=== PATIENT | male | born 1975 | race Two or more races ===

== ENCOUNTER 2018-04-06 11:50 | Emergency (ER) | payer SELFPAY ==
[2018-04-06 12:35] LABS: ADD MAN DIFF? NO
[2018-04-06] MEDS: IV NORMAL SALINE 1000ML BAG 1,000 ML IV ×2 (12:36→13:56)
[2018-04-06] MEDS: MORPHINE SULFATE 10 MG/ML VIAL. IV ×2 (12:38→14:01)
[2018-04-06 12:45] LABS: ANION GAP 14 (6-14); BLOOD UREA NITROGEN 13 mg/dL (8-26); BUN/CREATININE RATIO 10 (6-20); CALCIUM 9.3 mg/dL (8.5-10.1); CARBON DIOXIDE 23 mmol/L (21-32); CHLORIDE 99 mmol/L (98-107); CREATININE 1.3 mg/dL (0.7-1.3); GLUCOSE 135 mg/dL (70-99); POTASSIUM 3.5 mmol/L (3.5-5.1); SODIUM 136 mmol/L (136-145)
[2018-04-06 12:51] LABS: ALBUMIN 4.3 g/dL (3.4-5.0); ALBUMIN/GLOBULIN RATIO 1.3 (1.0-1.7); ALK PHOS 90 U/L (46-116); ALT (SGPT) 35 U/L (16-63); AST (SGOT) 28 U/L (15-37); TOTAL BILIRUBIN 0.5 mg/dL (0.2-1.0); TOTAL PROTEIN 7.6 g/dL (6.4-8.2)
[2018-04-06 13:28] LABS: BASO % 0 % (0-3); EOS % 0 % (0-3); HEMATOCRIT 45.8 % (39.0-53.0); LYMPH # 1.3 x10^3/uL (1.0-4.8); LYMPH % 15 % (24-48); MEAN CORPUSCULAR HEMOGLOBIN 31 pg (25-35); MEAN CORPUSCULAR HGB CONC 35 g/dL (31-37); MEAN CORPUSCULAR VOLUME 90 fL (79-100); MONO # 0.6 x10^3/uL (0.0-1.1); MONO % 6 % (0-9); NEUT # 7.2 x10^3uL (1.8-7.7); NEUT % 79 % (31-73); PLATELET COUNT 253 x10^3/uL (140-400); RED BLOOD COUNT 5.11 x10^6/uL (4.30-5.70); WHITE BLOOD COUNT 9.1 x10^3/uL (4.0-11.0)
[2018-04-06] MEDS: TAMSULOSIN 0.4 MG CAP.ER.24H. PO (13:57)
[2018-04-06] MEDS: KETOROLAC 30 MG/ML INJ. IV (13:59)
[2018-04-06 14:22] LABS: BILIRUBIN,URINE NEGATIVE (NEG); COLOR,URINE YELLOW; GLUCOSE,URINE NEGATIVE (NEG); NITRITE,URINE NEGATIVE (NEG); PH,URINE 7.5; PROTEIN,URINE NEGATIVE (NEG-TRACE)
[2018-04-06 14:24] LABS: BACTERIA,URINE 0 /HPF (0-FEW); CLARITY,URINE CLEAR; RBC,URINE OCC /HPF (0-2); WBC,URINE 0 /HPF (0-4)
== END 2018-04-06 15:32 | disposition home or self-care (01) ==
LOC: ER 11:50
DX: N20.0 Calculus of kidney (principal)
CPT/HCPCS: 36415; 74176; 80053; 81001; 85025; 96374; 96375; 96376; 99285-25; J1885; J2270; J7030